=== PATIENT | female | born 1970 | race Caucasian/White ===

== ENCOUNTER 2017-05-08 09:06 | Day surgery (SDC) | payer OTHER ==
[2017-05-08] VITALS (12 sets, daily range): BP systolic 108–137; BP diastolic 56–74; PULSE 60–80; RESP 11–21; Ht 157.5 cm; Wt 71.5 kg
[~2017-05-08] VITALS: Ht 157.5 cm; Wt 71.5 kg
[2017-05-08] MEDS ORDERED: CEFAZOLIN 2 GM/50 ML (PMX) 50 ML IVPB ONE (10:30)
[2017-05-08] MEDS ORDERED: SOD CHLORIDE 0.9% 1,000 ML IV ONE (10:30)
[2017-05-08 10:43] LABS: BASOPHILS % 0.6 % (0.0-2.0); EOSINOPHILS # 0.1 10^3/ul (0.0-0.5); EOSINOPHILS % 0.9 % (0.0-7.0); HEMATOCRIT 30.2 % (37.0-47.0); HEMOGLOBIN 8.7 g/dl (12.0-16.0); LYMPHOCYTES # 1.7 10^3/ul (0.8-2.9); MEAN CORPUSCULAR HEMOGLOBIN 22.1 pg (29.0-33.0); MEAN CORPUSCULAR HGB CONC 28.8 g/dl (32.0-37.0); MEAN CORPUSCULAR VOLUME 76.8 fl (82.0-101.0); MEAN PLATELET VOLUME 9.5 fl (7.4-10.4); MONOCYTE # 0.5 10^3/ul (0.3-0.9); MONOCYTES % 7.2 % (0.0-11.0); NEUTROPHIL # 4.2 10^3/ul (1.6-7.5); NEUTROPHILS % 64.8 % (39.0-77.0); PLATELET COUNT 470 10^3/UL (140-415); RED BLOOD COUNT 3.93 10^6/ul (4.20-5.40); RED CELL DISTRIBUTION WIDTH 16.8 % (11.5-14.5); WHITE BLOOD COUNT 6.4 10^3/ul (4.8-10.8)
[2017-05-08 10:52] LABS: HOLD TRANSMISSIONS 1; POSITIVE DIFF @See below
[2017-05-08 11:00] LABS: INR 0.9; PROTIME 12.1 Sec (12.2-14.2); PT RATIO 0.9
[2017-05-08 11:01] LABS: PARTIAL THROMBOPLASTIN TIME 27.9 Sec (25.0-35.0)
[2017-05-08 11:06] LABS: ALBUMIN 4.5 g/dl (3.3-4.9); ALBUMIN/GLOBULIN RATIO 1.5; BILIRUBIN,INDIRECT 0.1 mg/dl (0-1.1); BILIRUBIN,TOTAL 0.1 mg/dl (0.2-1.3); TOTAL PROTEIN 7.5 g/dl (6.1-8.1)
[2017-05-08 11:10] LABS: CALCIUM 9.4 mg/dl (8.4-10.2); CREATININE 0.54 mg/dl (0.44-1.00); POTASSIUM 4.2 mmol/L (3.5-5.1)
[2017-05-08] MEDS ORDERED: LIDOCAINE 2%/EPI 30 ML INJ ONE (11:57)
[2017-05-08] MEDS ORDERED: FENTAnyl 50 MCG/ML VIAL ONE (12:23)
[2017-05-08] MEDS ORDERED: MIDAZOLAM 1 MG/ML 2 ML INJ ONE (12:24)
[2017-05-08] MEDS ORDERED: BACITRACIN/POLYMYXIN 28.35 GM OINT TOP ONE (12:59)
[2017-05-08] MEDS ORDERED: LIDOCAINE 2% (SDV) 5 ML INJ ONE (13:09)
[2017-05-08] MEDS ORDERED: ONDANSETRON 4 MG INJ ONE (13:09)
[2017-05-08] MEDS ORDERED: PROPOFOL 20 ML ONE (13:09)
[2017-05-08] MEDS ORDERED: CEFAZOLIN 1 GM INJ ONE (13:09)
--- NOTE | 2017-05-08 13:09 | OPR ---
Date/Time of Note Date/Time of Note DATE: 05/08/17 TIME: 13:05 Operative Report Procedure Date: May 08, 2017 Preoperative Diagnosis Perianal skin tags 2 Postoperative Diagnosis Perianal skin tags 2 Operation Performed 1. Exam under anesthesia 2. Excision of perianal skin tags 2 Surgeon see signature line Anesthesia Type: general Anesthesiologist: MARQUITA MASON MD Estimated Blood Loss: minimal Transfusion Required: no Specimens Perianal skin tags 2 Grafts/Implants: none Complications: no Pt Condition Post Procedure: stable Disposition: PACU Indications Patient is a 46-year-old female who presented to the office complaining of perianal skin tags. One was located at the 12 o'clock position with the patient lithotomy, the other larger one at approximately 5 o'clock position with the patient in lithotomy. These have been enlarging and causing increasing pain, especially with bowel movements. The patient was scheduled for exam under anesthesia and excision of perianal skin tags 2. All risks and benefits of the procedure including, but not limited to: Wound infection, excessive bleeding, prolonged wound healing, anal stricture, incontinence of feces/gas which may be temporary versus permanent, etc. were all explained to the patient in full detail. She fully understood and wished to proceed with the procedure. Informed consent was obtained. Operative\Procedure Findings Perianal skin tags 2. Very small internal hemorrhoids. Procedure Description The patient was brought to the operating room and placed supine on the operating table. Bilateral sequential compression devices were placed on both lower extremities. A dose of broad-spectrum perioperative intravenous antibiotics was given. After the induction of smooth general anesthesia the patient was placed in the lithotomy position using Dioni stirrups. All pressure points were padded. The perineal area was then prepped and draped in standard surgical fashion. After performance of the surgical timeout 2% lidocaine with epinephrine was infiltrated in the area of the skin tags, creating a raised wheal. Exam under anesthesia was done. It showed very small internal hemorrhoids. The rest of the examination was otherwise normal. Attention was then first turned to the excision of the larger skin tag located at the 5 o'clock position. This was grasped using a Justin clamp and excised with a 15 blade scalpel. Hemostasis was then obtained with Bovie electrocautery. Incision was then reapproximated using interrupted 3-0 chromic sutures. Attention was then turned to the superior skin tag located at the 12 o 'clock position. This was grasped using a Justin clamp and excised with 15 blade scalpel. Hemostasis was then obtained with Bovie electrocautery. Incision was then reapproximated using interrupted 3-0 chromic sutures. The incisions were then cleaned and bacitracin ointment was applied. The patient was awoken from anesthesia and transferred to the recovery room in stable condition. All counts were correct at the end of the case 2. GAGAN CARPENTER MD May 08, 2017 13:09
[2017-05-08] MEDS ORDERED: MEPERIDINE 25 MG INJ IV PRN (13:30)
[2017-05-08] MEDS ORDERED: FENTAnyl 50 MCG/ML VIAL IV PRN (13:30)
[2017-05-08] MEDS ORDERED: IBUPROFEN 600 MG TAB PO PRN (13:30)
[2017-05-08] MEDS ORDERED: KETOROLAC 30 MG INJ IV PRN (13:30)
[2017-05-08] MEDS ORDERED: ONDANSETRON 4 MG INJ IV PRN ×2 (13:30)
[2017-05-08] MEDS ORDERED: DIPHENHYDRAMINE 50 MG INJ IV PRN (13:30)
== END 2017-05-08 15:28 | disposition home or self-care (01) ==
LOC: SDS 09:06 → SUR 09:06
PROVIDERS: ATTEND Surgery
DX: K64.4 Residual hemorrhoidal skin tags (principal)
CPT/HCPCS: 46922; 80053; 85025; 85610; 85730; 88304; J0690; J2250; J2405; J3010; J7030; Z7512; Z7610

== ENCOUNTER 2017-05-14 15:09 | Emergency (ER) | END 2017-05-14 17:18 | disposition home or self-care (01) | DX: K64.8 Other hemorrhoids (principal) ==

== ENCOUNTER 2017-08-25 09:08 | Day surgery (SDC) | END 2017-08-25 16:14 | disposition home or self-care (01) ==